=== PATIENT | female | born 1985 | race Two or more races ===

== ENCOUNTER 2018-08-05 21:27 | Emergency (ER) | payer MEDICAID ==
[~2018-08-05] VITALS: Ht 160 cm; Wt 66.2 kg
[2018-08-05 23:37] VITALS: BP 112/71
== END 2018-08-05 23:37 | disposition home or self-care (01) ==
LOC: ED 21:27
DX: O26.891 Other specified pregnancy related conditions, first trimester (principal); H60.92 Unspecified otitis externa, left ear; Z3A.10 10 weeks gestation of pregnancy; Z88.0 Allergy status to penicillin